=== PATIENT | female | born 1980 | race Two or more races ===

== ENCOUNTER 2018-03-08 17:12 | Emergency (ER) | payer OTHER ==
[~2018-03-08] VITALS: Ht 165.1 cm; Wt 52.2 kg
--- NOTE | 2018-03-08 18:44 | NUR ---
MSE DONE BY DR VANN IN ROOM 04A.
[2018-03-08 19:02] LABS: *BILIRUBIN,URIN NEGATIVE (NEGATIVE); *BLOOD, URINE NEGATIVE (NEGATIVE); *CLARITY,URINE CLEAR (CLEAR); *COLOR,URINE YELLOW (YELLOW); *KETONES,URINE NEGATIVE (NEGATIVE); *PROTEIN,URINE NEGATIVE (NEGATIVE); *UROBILINOGEN,URINE 0.2 E.U./dl (NORMAL); LEUKOCYTE ESTERASE ,URINE TRACE (NEGATIVE); NITRITE, URINE NEGATIVE (NEGATIVE); UGLUCOSE NEGATIVE (NEGATIVE)
[2018-03-08 19:04] LABS: *URINE HCG, QUAL NEGATIVE (NEGATIVE)
[2018-03-08 19:10] LABS: MUCUS,URINE MODERATE /LPF (0-FEW); RBC,URINE 0-3 /HPF (0-3); SQUAMOUS EPITHELIAL CELL,UR FEW /HPF (NONE SEEN)
--- NOTE | 2018-03-08 19:14 | NUR ---
REPORT TAKEN FROM LAMONT SALINAS. ASSUMING PT CARE AT THIS TIME.
--- NOTE | 2018-03-08 19:15 | NUR ---
PT TAKEN TO RADIOLOGY FOR CT. NO ACUTE DISTRESS NOTED.
--- NOTE | 2018-03-08 20:08 | NUR ---
Patient discharged to home in stable conditon. Written and verbal after care instructions given. Patient verbalizes understanding of instructions. No distress noted. Pt took all peronal belongings.
[2018-03-08 20:09] VITALS: BP 118/74
== END 2018-03-08 20:10 | disposition home or self-care (01) ==
LOC: ER 17:13
DX: F07.81 Postconcussional syndrome (principal)
CPT/HCPCS: 70450; 72125; 81001; 84703; 99285; A4663